=== PATIENT | male | born 1960 | race Caucasian/White ===

== ENCOUNTER 2019-10-21 10:56 | Observation (INO) | payer OTHER ==
[~2019-10-21] VITALS: Ht 180.3 cm; Wt 85.0 kg
--- NOTE | 2019-10-21 11:11 | ED Chest Pain ---
General Chief Complaint: Chest Pain Stated Complaint: CHEST PAIN Source: patient Exam Limitations: no limitations History of Present Illness Date Seen by Provider: Oct 21, 2019 Time Seen by Provider: 11:09 Initial Comments to ER by private vehicle with reports of chest tightness intermittently for 3 weeks. Seems to be brought about by activity. It does go away if he stops the activity. No shortness of breath or diaphoresis or nausea. No personal or family history of heart disease. States that he is prediabetic with his last hemoglobin A1c of about 6. He does smoke just under a pack of cigarettes per day. He called his urologist Dr. Sadler today who referred him to ER for further evaluation. 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 States that walking around carrying a tray does seem to worsen his pain. his only medication is Cialis, most recent dose was on of this past week. Timing/Duration: 1-2 days (heart but) Severity/Quality: moderate Radiation: no radiation Activities at Onset: none Prior CP/Workup: no prior chest pain, no prior cardiac workup Modifying Factors: improves with rest ASA po ORE MINER: No NTG SL ORE MINER: No Allergies and Home Medications Allergies Coded Allergies: simvastatin (Verified Allergy, Unknown, 10/21/19) Patient Home Medication List Home Medication List Reviewed: Yes Review of Systems Review of Systems Constitutional: see HPI EENTM: No Symptoms Reported Respiratory: No Symptoms Reported Cardiovascular: See HPI, Chest Pain; Denies Irregular Heart Rate, Denies Palpitations, Denies Syncope Gastrointestinal: See HPI; Denies Abdominal Pain, Denies Nausea Genitourinary: No Symptoms Reported Musculoskeletal: no symptoms reported Skin: no symptoms reported Psychiatric/Neurological: No Symptoms Reported Endocrine: No Symptoms Reported Hematologic/Lymphatic: No Symptoms Reported Past Ycewwen-Pzxgkm-Zumxyr Hx Patient Social History Recent Foreign Travel: No Contact w/Someone Who Travel: No Physical Exam Vital Signs Vital Signs - First Documented 10/21/19 10:59 Pulse 62 Resp 18 B/P (MAP) 152/104 (120) Pulse Ox 98 O2 Delivery Room Air Capillary Refill : Height, Weight, BMI Height: '" Weight: lbs. oz. kg; BMI Method: General Appearance: No Apparent Distress, WD/WN HEENT: PERRL/EOMI, TMs Normal Neck: Full Range of Motion, Normal Inspection Respiratory: Lungs Clear, Normal Breath Sounds, No Accessory Muscle Use, No Respiratory Distress Cardiovascular: Regular Rate, Rhythm, Normal Peripheral Pulses Gastrointestinal: Non Tender, Soft Neurologic/Psychiatric: Alert, Oriented x3 Skin: Normal Color, Warm/Dry Other comments 1111-he currently rates his pain at 1 out of 10. Progress/Results/Core Measures Results/Orders Lab Results Laboratory Tests Test 10/21/19 11:02 Range/Units White Blood Count 7.8 4.3-11.0 10^3/uL Red Blood Count 5.03 4.35-5.85 10^6/uL Hemoglobin 14.7 13.3-17.7 G/DL Hematocrit 44 40-54 % Mean Corpuscular Volume 88 80-99 FL Mean Corpuscular Hemoglobin 29 25-34 PG Mean Corpuscular Hemoglobin Concent 33 32-36 G/DL Red Cell Distribution Width 12.9 10.0-14.5 % Platelet Count 159 130-400 10^3/uL Mean Platelet Volume 11.4 H 7.4-10.4 FL Neutrophils (%) (Auto) 55 42-75 % Lymphocytes (%) (Auto) 35 12-44 % Monocytes (%) (Auto) 8 0-12 % Eosinophils (%) (Auto) 3 0-10 % Basophils (%) (Auto) 0 0-10 % Neutrophils # (Auto) 4.3 1.8-7.8 X 10^3 Lymphocytes # (Auto) 2.7 1.0-4.0 X 10^3 Monocytes # (Auto) 0.6 0.0-1.0 X 10^3 Eosinophils # (Auto) 0.2 0.0-0.3 10^3/uL Basophils # (Auto) 0.0 0.0-0.1 10^3/uL Prothrombin Time 12.1 L 12.2-14.7 SEC INR Comment 0.9 0.8-1.4 Activated Partial Thromboplast Time 24 24-35 SEC Sodium Level 140 135-145 MMOL/L Potassium Level 4.5 3.6-5.0 MMOL/L Chloride Level 111 H 98-107 MMOL/L Carbon Dioxide Level 20 L 21-32 MMOL/L Anion Gap 9 5-14 MMOL/L Blood Urea Nitrogen 16 7-18 MG/DL Creatinine 0.93 0.60-1.30 MG/DL Estimat Glomerular Filtration Rate > 60 BUN/Creatinine Ratio 17 Glucose Level 103 70-105 MG/DL Calcium Level 9.0 8.5-10.1 MG/DL Corrected Calcium 8.8 8.5-10.1 MG/DL Magnesium Level 2.1 1.6-2.4 MG/DL Total Bilirubin 0.3 0.1-1.0 MG/DL Aspartate Amino Transf (AST/SGOT) 19 5-34 U/L Alanine Aminotransferase (ALT/SGPT) 15 0-55 U/L Alkaline Phosphatase 53 40-136 U/L Myoglobin 36.3 10.0-92.0 NG/ML Troponin I < 0.028 <0.028 NG/ML B-Type Natriuretic Peptide 45.8 <100.0 PG/ML Total Protein 6.9 6.4-8.2 GM/DL Albumin 4.2 3.2-4.5 GM/DL My Orders Orders - WILLARD SANTOS HANDLE SEWER Cbc With Automated Diff (10/21/19 11:08) Magnesium (10/21/19 11:08) Chest 1 View, Ap/Pa Only (10/21/19 11:08) Ekg Tracing (10/21/19 11:08) Comprehensive Metabolic Panel (10/21/19 11:08) Myoglobin Serum (10/21/19 11:08) Protime With Inr (10/21/19 11:08) Partial Thromboplastin Time (10/21/19 11:08) O2 (10/21/19 11:08) Monitor-Rhythm Ecg Trace Only (10/21/19 11:08) Lipid Panel (10/22/19 06:00) Ed Iv/Invasive Line Start (10/21/19 11:08) BNP (10/21/19 11:08) Troponin I (10/21/19 11:08) Nitroglycerin 0.4 Mg Btl 25's (Nitrostat (10/21/19 11:15) Aspirin Chewable Tablet (Baby Aspirin Ch (10/21/19 11:15) Medications Given in ED Current Medications Medications Dose Ordered Sig/Trisha Route Start Time Stop Time Status Last Admin Dose Admin Aspirin 324 mg ONCE ONCE PO 10/21/19 11:15 10/21/19 11:16 DC 10/21/19 11:23 324 MG Nitroglycerin 0.4 mg UD PRN SL 10/21/19 11:15 10/21/19 11:26 0.4 MG Vital Signs/I&O 10/21/19 10:59 Pulse 62 Resp 18 B/P (MAP) 152/104 (120) Pulse Ox 98 O2 Delivery Room Air Departure Communication (Admissions) Time/Spoke to Admitting Phy: 12:[address] Dr. Eduardo who agrees to admit, I spoke with Dr. Woodard who agrees to consult. Like aspirin and beta ana. Impression Primary Impression: Chest pain Qualified Codes: R07.9 - Chest pain, unspecified Disposition: ADMITTED INPATIENT Condition: Stable Admissions Decision to Admit Reason: Admit from ER (General) Decision to Admit/Date: Oct 21, 2019 Time/Decision to Admit Time: 11:46 WILLARD SANTOS APRN Oct 21, 2019 11:11
[2019-10-21] MEDS ORDERED: ASPIRIN 81 MG CHEW (CHILDREN'S ASA) PO ONE (11:15)
[2019-10-21] MEDS ORDERED: NITROGLYCERIN 0.4 MG SL TABS BTL 25'S SL PRN (11:15)
[2019-10-21 11:16] LABS: BASOPHILS % (AUTO) 0 % (0-10); EOSINOPHILS # (AUTO) 0.2 10^3/uL (0.0-0.3); EOSINOPHILS % (AUTO) 3 % (0-10); HEMATOCRIT 44 % (40-54); HEMOGLOBIN 14.7 G/DL (13.3-17.7); LYMPHOCYTES # (AUTO) 2.7 X 10^3 (1.0-4.0); LYMPHOCYTES % (AUTO) 35 % (12-44); MEAN CORPUSCULAR HEMOGLOBIN 29 PG (25-34); MEAN CORPUSCULAR HGB CONC 33 G/DL (32-36); MEAN CORPUSCULAR VOLUME 88 FL (80-99); MEAN PLATELET VOLUME 11.4 FL (7.4-10.4); MONOCYTES # (AUTO) 0.6 X 10^3 (0.0-1.0); MONOCYTES % (AUTO) 8 % (0-12); NEUTROPHILS # (AUTO) 4.3 X 10^3 (1.8-7.8); NEUTROPHILS % (AUTO) 55 % (42-75); PLATELET COUNT 159 10^3/uL (130-400); RED CELL DISTRIBUTION WIDTH 12.9 % (10.0-14.5); WHITE BLOOD COUNT 7.8 10^3/uL (4.3-11.0)
--- NOTE | 2019-10-21 11:23 | Diagnostic Imaging Report ---
INDICATION: Chest pain Frontal chest obtained at 11:14 a.m. Heart and mediastinal silhouette are normal in appearance. The lungs are clear. There is no pneumothorax or pleural fluid. IMPRESSION: Negative chest. Dictated by: Dictated on workstation # [id number]
[2019-10-21 11:28] LABS: INR 0.9 (0.8-1.4); PROTHROMBIN TIME PATIENT 12.1 SEC (12.2-14.7)
[2019-10-21 11:40] LABS: ALANINE AMINOTRANSFERASE 15 U/L (0-55); ALBUMIN 4.2 GM/DL (3.2-4.5); ALKALINE PHOSPHATASE 53 U/L (40-136); BILIRUBIN,TOTAL 0.3 MG/DL (0.1-1.0); BUN/CREATININE RATIO 17; CARBON DIOXIDE 20 MMOL/L (21-32); CHLORIDE 111 MMOL/L (98-107); CREATININE SERUM 0.93 MG/DL (0.60-1.30); GFR ESTIMATED > 60; GLUCOSE 103 MG/DL (70-105); MAGNESIUM 2.1 MG/DL (1.6-2.4); POTASSIUM 4.5 MMOL/L (3.6-5.0); SODIUM 140 MMOL/L (135-145); TOTAL PROTEIN 6.9 GM/DL (6.4-8.2)
--- NOTE | 2019-10-21 11:42 | NUR ---
PAIN STILL 1/10 REPORTS NITRO DID NOT HELP.
--- NOTE | 2019-10-21 11:45 | NUR ---
PATIENT STATES HE WILL UPDATE HIS .
--- NOTE | 2019-10-21 12:30 | NUR ---
PATIENT WILL CALL AND INFORM HER OF DISCHARGE INSTRUCTIOS.
[2019-10-21 13:07] VITALS: BP 128/81
[2019-10-21 13:08] VITALS: BP 128/81
--- NOTE | 2019-10-21 13:12 | NUR ---
BETTIE MIMS admitted to room 423-1, with an admitting diagnosis of angina, on 10/21/19 from ED via W/C, accompanied by .BETTIE MIMS introduced to surroundings, call light, bed controls, phone, TV, temperature control, lights, meal times, smoking policy, visitor policy, side rail policy, bathrooms and showers. Patient Rights given to patient in the handbook. BETTIE MIMS verbalizes understanding that [facility] is not responsible for the loss or damage to any personal effects or valuables that are kept in the patients posession during their hospitalization. The following Patient Care Plans were discussed with the PATIENT: Discharge Planning, CHEST PAIN AND KNOWLEDGE. BETTIE MIMS verbalizes understanding of Interdisciplinary Patient Education. Patient and/or family were informed about the Rapid Response Team and its purpose.
[2019-10-21] MEDS ORDERED: CATHETER FLUSH 10 ML SYR IV PRN (13:15)
--- NOTE | 2019-10-21 13:36 | Consultation-Cardiology ---
HPI-Cardiology Cardiology Consultation: Date of Consultation 10/21/19 Time Seen by a Provider: 13:00 Date of Admission 10-21-2019 Attending Physician Monique John MD Admitting Physician Consulting Physician Jose Woodard MD HPI: Chief Complaint: Chest pain Mr. Zamudio is a 59 year old male who works out at the [employer] in the [facility]. He has been admitted from the ED to 423. He reports for the last 3-4 weeks he has been having chest pressure which radiates across his chest. Discomfort comes on with exertion and relieves with rest. He reports some and weakness with the discomfort. With rest the discomfort will improve after a few minutes. He denies any palpitations, diaphoresis, syncope or near syncope. No LE swelling. No c/o n/v/d. No c/o fever or chills. He reports occ GERD. He states last evening he woke up during the night with acid reflux. He does not report any LE swelling. Review of Systems-Cardiology Review of Systems Constitutional: No chills, No fever, No malaise Eyes: No vision change Ears/Nose/Throat: No epistaxis, No recent hearing loss Respiratory: As described under HPI Cardiovascular: As described under HPI Gastrointestinal: No constipation, No diarrhea, No nausea, No vomiting Genitourinary: No dysuria, No hematuria Musculoskeletal: back pain Skin: No rash on exposed areas, No ulcerations on exposed areas Psychiatric/Neurological: No anxiety, No depression, No seizure, No focal weakness, No syncope Hematologic: No bleeding abnormalities BAX-Gbnxun-Pcgwkw Hx Patient Social History Alcohol Use: Regular Use Recreational Drug Use: No Smoking Status: Current Everyday Smoker Recent Foreign Travel: No Recent Infectious Disease Expo: No Past Medical History PMH As described under Assessment. Family Medical History Family Medical History: He reports his father had a CVA. He reports a son who had a brain tumor. Allergies and Home Medications Allergies Coded Allergies: simvastatin (Verified Allergy, Unknown, 10/21/19) Home Medications Aspirin 81 Mg Tab.chew, 81 MG PO DAILY Prescribed by: JOSE WOODARD on 10/22/19 1215 Pravastatin Sodium 20 Mg Tablet, 20 MG PO HS Prescribed by: JOSE WOODARD on 10/22/19 1216 Tadalafil 5 Mg Tablet, 5 MG PO DAILY, (Reported) Physical Exam-Cardiology Physical Exam Vital Signs/I&O 10/22/19 10/22/19 10/22/19 10/22/19 04:55 07:21 08:00 09:00 Temp 36.7 36.0 Pulse 47 42 45 Resp 16 18 B/P (MAP) 113/75 (88) 111/69 (83) Pulse Ox 95 98 O2 Delivery Room Air Room Air Room Air 10/22/19 10/22/19 10/22/19 10/22/19 11:15 11:30 11:45 12:00 Temp 36.0 Pulse 48 48 47 42 Resp 18 16 18 18 B/P (MAP) 114/68 (83) 108/65 (79) 104/70 (81) 109/68 (82) Pulse Ox 96 93 94 95 O2 Delivery Room Air Room Air Room Air Room Air 10/22/19 12:15 Pulse 48 Resp 18 B/P (MAP) 118/74 (89) Pulse Ox 94 O2 Delivery Room Air 10/22/19 00:00 Intake Total 900 ml Balance 900 ml Capillary Refill : Less Than 3 Seconds Constitutional: AAO x 3, well-nourished HEENT: PERRL, hearing is well preserved Neck: No carotid bruit; carotid pulses are 2 + bilaterally Respiratory: No accessory muscle use, No respiratory distress; chest expansion is symmetric, chest is bilaterally symmetric, lungs clear to auscultation Cardiovascular: regular rate-rhythm; No JVD; S1 and S2 Gastrointestinal: No tender; soft, round, audible bowel sounds Extremities: no lower extremity edema bilateral Neurologic/Psychiatric: grossly intact (moves all extremities) Skin: No rash on exposed areas, No ulcerations on exposed areas Data Review Labs Laboratory Tests 10/21/19 17:50: Troponin I < 0.028 10/21/19 18:05: 10/22/19 00:17: Troponin I < 0.028, White Blood Count 6.4, Red Blood Count 4.54, Hemoglobin 13.4, Hematocrit 40, Mean Corpuscular Volume 88, Mean Corpuscular Hemoglobin 30, Mean Corpuscular Hemoglobin Concent 34, Red Cell Distribution Width 13.0, Platelet Count 149, Mean Platelet Volume 11.0H, Neutrophils (%) (Auto) 47, Lymphocytes (%) (Auto) 43, Monocytes (%) (Auto) 7, Eosinophils (%) (Auto) 3, Basophils (%) (Auto) 0, Neutrophils # (Auto) 3.0, Lymphocytes # (Auto) 2.7, Monocytes # (Auto) 0.4, Eosinophils # (Auto) 0.2, Basophils # (Auto) 0.0, Prothrombin Time 13.0, INR Comment 0.9, Activated Partial Thromboplast Time 25, Sodium Level 140, Potassium Level 3.8, Chloride Level 109H, Carbon Dioxide Level 21, Anion Gap 10, Blood Urea Nitrogen 16, Creatinine 0.93, Estimat Glomerular Filtration Rate > 60, BUN/Creatinine Ratio 17, Glucose Level 136H, Calcium Level 8.6, Corrected Calcium 8.9, Total Bilirubin 0.3, Aspartate Amino Transf (AST/SGOT) 11, Alanine Aminotransferase (ALT/SGPT) 12, Alkaline Phosphatase 45, Total Protein 5.8L, Albumin 3.6, Triglycerides Level 138, Cholesterol Level 149, LDL Cholesterol Direct 100, VLDL Cholesterol 28, HDL Cholesterol 44 Microbiology 10/21/19 MRSA Screen - Final, Complete MRSA not isolated Radiology NAME: BETTIE ZAMUDIO [facility] REC#: [id number] PT STATUS: REG ER : 1960 PHYSICIAN: WILLARD SANTOS PRINCIPAL SYSTEMS ARCHITECT ADMIT DATE: 10/21/19/ER Draft Date of Exam:10/21/19 CHEST 1 VIEW, AP/PA ONLY INDICATION: Chest pain Frontal chest obtained at 11:14 a.m. Heart and mediastinal silhouette are normal in appearance. The lungs are clear. There is no pneumothorax or pleural fluid. IMPRESSION: Negative chest. Dictated on workstation # [id number] Dict: 10/21/19 1122 Trans: 10/21/19 1123 CVB [id number] Interpreted by: MARLIN THURMAN MD Electronically signed by: ECG Impression ECG Initial ECG Rhythm: Normal Sinus A/P-Cardiology Assessment/Admission Diagnosis Chest pain indicative of angina HTN HLD Tobaccoism (1/2 PPD for approx 40 yrs) Chronic back pain with h/s DDD GERD ED Discussion and Recomendations Chest pain with features consistent with angina - advise cardiac cath We have discussed the procedure, risks, benefits and potential complications of cardiac cath with possible ad hoc coronary intervention. He provides informed consent. We will proceed tomorrow or sooner if indicated. Continue ASA and BB Lipid panel in the morning Echocardiogram to eval structure Further recs will be based on his hospital course We would like to thank medical services for this consult Clinical Quality Measures AMI/AHF: ASA po Prior to arrival: MARY JANE Frank Oct 21, 2019 13:36
[2019-10-21] MEDS ORDERED: TADA5TAB13 PO (13:54)
--- NOTE | 2019-10-21 13:55 | NUR ---
SPOKE WITH PT ( I CALLED HIS ROOM PHONE) AND WENT THRU THE EXT MED HISTORY TO COMPLETE THE MED REC PT SAYS HE TAKES CIALIS 5MG DAILY BUT THE LAST DOSE HE HAD WAS ON 10-17-2019 OTC MEDS: NONE
--- NOTE | 2019-10-21 14:42 | History & Physical-Hospitalist ---
History of Present Illness HPI/Chief Complaint Pt is a 59yoCM with no significiant PMH who presented to the ER due to chest pain. He states that it's only there with exertion but is very intense. He has noticed it with yardwork and while at work and carrying trays. It resolved with rest. He denies any diaphoresis, nausea, or radiation of pain. he describes it as a heaviness. He has noticed some mild shortness of breath with it. He has already seen Dr Woodard and plan is to do a cath in the morning. First troponin was negative. He was admitted for observation. Source: patient Date Seen 10/21/19 Time Seen by a Provider: 14:42 Attending Physician Renny John MD PCP Referring Physician Date of Admission Oct 21, 2019 at 12:13 Home Medications & Allergies Home Medications Reviewed patient Home Medication Reconciliation performed by pharmacy medication reconciliations plant technician and/or nursing. Patients Allergies have been reviewed. Allergies Allergies Coded Allergies simvastatin (Verified Allergy, Unknown, 10/21/19) Past Lexboae-Nnysmx-Pfriiq Hx Past Med/Social Hx: Reviewed Nursing Past Med/Soc Hx Patient Social History Marrital Status: Alcohol Use: Regular Use Alcohol Beverage of Choice: Beer Recreational Drug Use: No Smoking Status: Current Everyday Smoker Recent Foreign Travel: No Contact w/other who traveled: No Recent Infectious Disease Expo: No Family History Reviewed Nursing Family Hx Alcoholism 19 FATHER Arthritis 19 MOTHER Review of Systems Constitutional: No chills, No diaphoresis, No fever EENTM: no symptoms reported Respiratory: see HPI; No cough; dyspnea on exertion, short of breath Cardiovascular: see HPI, chest pain; No edema, No Hx of Intervention, No palpitations, No syncope Gastrointestinal: No abdominal pain, No constipation, No diarrhea, No nausea, No vomiting Genitourinary: no symptoms reported Musculoskeletal: no symptoms reported Skin: no symptoms reported Psychiatric/Neurological: No Symptoms Reported Physical Exam Physical Exam Vital Signs Vital Signs - First Documented 10/21/19 10/21/19 10:59 13:07 Temp 36.2 Pulse 62 Resp 18 B/P (MAP) 152/104 (120) Pulse Ox 98 O2 Delivery Room Air Capillary Refill : Less Than 3 Seconds Height, Weight, BMI Height: '" Weight: lbs. oz. kg; 26.14 BMI Method: General Appearance: No Apparent Distress, WD/WN HEENT: PERRL/EOMI, Moist Mucous Membranes; No Scleral Icterus (L), No Scleral Icterus (R) Neck: Normal Inspection, Supple Respiratory: Lungs Clear, No Accessory Muscle Use, No Respiratory Distress Cardiovascular: Regular Rate, Rhythm, No JVD, No Murmur Gastrointestinal: Normal Bowel Sounds, Non Tender, Soft Extremity: Non Tender, No Calf Tenderness, No Pedal Edema Neurologic/Psychiatric: Alert, Oriented x3, Normal Mood/Affect Skin: Normal Color, Warm/Dry Results Results/Procedures Labs Laboratory Tests 10/21/19 11:02 Patient resulted labs reviewed. Imaging: Reviewed Imaging Report Imaging [facility] [place], [place] NAME: BETTIE MIMS [facility] REC#: [id number] PT STATUS: REG ER : 1960 PHYSICIAN: WILLARD SANTOS APRN ADMIT DATE: 10/21/19/ER Draft Date of Exam:10/21/19 CHEST 1 VIEW, AP/PA ONLY INDICATION: Chest pain Frontal chest obtained at 11:14 a.m. Heart and mediastinal silhouette are normal in appearance. The lungs are clear. There is no pneumothorax or pleural fluid. IMPRESSION: Negative chest. Dictated on workstation # [id number] Dict: 10/21/19 1122 Trans: 10/21/19 1123 [facility] [id number] Interpreted by: MARLIN THURMAN MD Electronically signed by: Assessment/Plan Admission Diagnosis Stable angina Admission Status: Observation Assessment and Plan Stable angina Cardiology consulted, appreciate recs troponin negative Telemetry Plan for cath in the AM ASA given DVt ppx: Lovenox Clinical Quality Measures AMI/AHF: ASA po Prior to arrival: No DVT/VTE Risk/Contraindication: Risk Factor Score Per Nursin RFS Level Per Nursing on Admit: 2=Moderate RENNY JOHN MD Oct 21, 2019 14:42
[2019-10-21] MEDS: CATHETER FLUSH 10 ML SYR IV SCH ×2 (15:15→20:15)
[2019-10-21 15:30] VITALS: BP 120/78
--- NOTE | 2019-10-21 16:07 | Consultation-Cardiology ---
HPI-Cardiology Cardiology Consultation: Date of Consultation 10/21/19 Time Seen by a Provider: 13:30 Date of Admission Attending Physician Monique John MD Admitting Physician Consulting Physician RENETTA ROSAS MD, MA, FACP, FACC, FSCAI, CCDS HPI: Chief Complaint: CC: Chest pain HPI Mr. 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 He has been admitted from the ED to 423. He reports for the last 3-4 weeks he has been having chest pressure which radiates across his chest. Discomfort comes on with exertion and relieves with rest. He reports some and weakness with the discomfort. With rest the discomfort will improve after a few minutes. He denies any palpitations, diaphoresis, syncope or near syncope. No LE swelling. No c/o n/v/d. No c/o fever or chills. He reports occ GERD. He states last evening he woke up during the night with acid reflux. He does not report any LE swelling. Review of Systems-Cardiology Review of Systems Constitutional: No chills, No fever, No malaise Eyes: No vision change Ears/Nose/Throat: No epistaxis, No recent hearing loss Respiratory: As described under HPI Cardiovascular: As described under HPI Gastrointestinal: No constipation, No diarrhea, No nausea, No vomiting Genitourinary: No dysuria, No hematuria Musculoskeletal: back pain Skin: No rash on exposed areas, No ulcerations on exposed areas Psychiatric/Neurological: No anxiety, No depression, No seizure, No focal weakness, No syncope Hematologic: No bleeding abnormalities TZI-Ysfmal-Zxneyu Hx Patient Social History Marrital Status: Alcohol Use: Regular Use Recreational Drug Use: No Smoking Status: Current Everyday Smoker Recent Foreign Travel: No Recent Infectious Disease Expo: No Past Medical History PMH As described under Assessment. Family Medical History Family Medical History: He reports his father had a CVA. He reports a son who had a brain tumor. Family History: Alcoholism 19 FATHER Arthritis 19 MOTHER Allergies and Home Medications Allergies Coded Allergies: simvastatin (Verified Allergy, Unknown, 10/21/19) Home Medications Tadalafil 5 Mg Tablet, 5 MG PO DAILY, (Reported) Patient Home Medication List Home Medication List Reviewed: Yes Physical Exam-Cardiology Physical Exam Vital Signs/I&O 8/10/21/19 10/21/19 10/21/19 10:59 12:58 13:07 13:08 Temp 36.2 36.2 Pulse 62 55 51 51 Resp 18 18 18 18 B/P (MAP) 152/104 (120) 124/87 128/81 (97) 128/81 Pulse Ox 98 96 97 97 O2 Delivery Room Air Room Air Room Air 10/21/19 13:34 Pulse 48 Capillary Refill : Less Than 3 Seconds Constitutional: AAO x 3, well-nourished HEENT: PERRL, hearing is well preserved Neck: carotid pulses are 2 + bilaterally Respiratory: chest expansion is symmetric, chest is bilaterally symmetric, lungs clear to auscultation Cardiovascular: regular rate-rhythm, S1 and S2 Gastrointestinal: soft, round, audible bowel sounds Extremities: no lower extremity edema bilateral Neurologic/Psychiatric: grossly intact Skin: No rash on exposed areas, No ulcerations on exposed areas Data Review Labs Laboratory Tests 10/21/19 11:02: White Blood Count 7.8, Red Blood Count 5.03, Hemoglobin 14.7, Hematocrit 44, Mean Corpuscular Volume 88, Mean Corpuscular Hemoglobin 29, Mean Corpuscular Hemoglobin Concent 33, Red Cell Distribution Width 12.9, Platelet Count 159, Mean Platelet Volume 11.4H, Neutrophils (%) (Auto) 55, Lymphocytes (%) (Auto) 35, Monocytes (%) (Auto) 8, Eosinophils (%) (Auto) 3, Basophils (%) (Auto) 0, Neutrophils # (Auto) 4.3, Lymphocytes # (Auto) 2.7, Monocytes # (Auto) 0.6, Eosinophils # (Auto) 0.2, Basophils # (Auto) 0.0, Prothrombin Time 12.1L, INR Comment 0.9, Activated Partial Thromboplast Time 24, Sodium Level 140, Potassium Level 4.5, Chloride Level 111H, Carbon Dioxide Level 20L, Anion Gap 9, Blood Urea Nitrogen 16, Creatinine 0.93, Estimat Glomerular Filtration Rate > 60, BUN/Creatinine Ratio 17, Glucose Level 103, Calcium Level 9.0, Corrected Calcium 8.8, Magnesium Level 2.1, Total Bilirubin 0.3, Aspartate Amino Transf (AST/SGOT) 19, Alanine Aminotransferase (ALT/SGPT) 15, Alkaline Phosphatase 53, Myoglobin 36.3, Troponin I < 0.028, B-Type Natriuretic Peptide 45.8, Total Protein 6.9, Albumin 4.2 Laboratory Tests 10/21/19 11:02 A/P-Cardiology Assessment/Admission Diagnosis Chest pain indicative of new onset of angina HTN HLD Tobaccoism (1/2 PPD for approx 40 yrs) Chronic back pain with h/s DDD GERD ED Discussion and Recomendations Given chest pain with features consistent with angina, we advise cardiac cath We have discussed the procedure, risks, benefits and potential complications of cardiac cath with possible ad hoc coronary intervention. He provides informed consent. We will proceed tomorrow or sooner if indicated. Continue ASA and BB Lipid panel in the morning Echocardiogram to eval structure Further recs will be based on his hospital course We would like to thank Medical services for this consult Clinical Quality Measures AMI/AHF: ASA po Prior to arrival: No DVT/VTE Risk/Contraindication: Risk Factor Score Per Nursin RFS Level Per Nursing on Admit: 2=Moderate RENETTA ROSAS MD FACP FAC CCDS Oct 21, 2019 16:07
--- NOTE | 2019-10-21 16:39 | NUR ---
NOTIFIED DR PETERSEN HEART RATE IS 43 (METOPROLOL GIVEN ORDERED). DVT SCOR IS 2 SCD'S ONLY. WATCH HEART RATE AND NOTIFIY DR ROSAS OR MARY JANE. DR ROSAS PAGED
--- NOTE | 2019-10-21 17:52 | NUR ---
PAGED DR ROSAS AGAIN. HEART RATE RUNNING AROUND 45. DC THE METOPROLOL
[2019-10-21 20:13] VITALS: BP 113/73
[2019-10-22] VITALS (14 sets, daily range): BP systolic 104–119; BP diastolic 65–78
[2019-10-22 00:28] LABS: BASOPHILS % (AUTO) 0 % (0-10); EOSINOPHILS # (AUTO) 0.2 10^3/uL (0.0-0.3); EOSINOPHILS % (AUTO) 3 % (0-10); HEMATOCRIT 40 % (40-54); HEMOGLOBIN 13.4 G/DL (13.3-17.7); LYMPHOCYTES # (AUTO) 2.7 X 10^3 (1.0-4.0); LYMPHOCYTES % (AUTO) 43 % (12-44); MEAN CORPUSCULAR HEMOGLOBIN 30 PG (25-34); MEAN CORPUSCULAR HGB CONC 34 G/DL (32-36); MEAN CORPUSCULAR VOLUME 88 FL (80-99); MONOCYTES # (AUTO) 0.4 X 10^3 (0.0-1.0); MONOCYTES % (AUTO) 7 % (0-12); NEUTROPHILS % (AUTO) 47 % (42-75); PLATELET COUNT 149 10^3/uL (130-400); WHITE BLOOD COUNT 6.4 10^3/uL (4.3-11.0)
[2019-10-22 00:39] LABS: INR 0.9 (0.8-1.4)
[2019-10-22 00:52] LABS: ALANINE AMINOTRANSFERASE 12 U/L (0-55); ALBUMIN 3.6 GM/DL (3.2-4.5); ALKALINE PHOSPHATASE 45 U/L (40-136); BILIRUBIN,TOTAL 0.3 MG/DL (0.1-1.0); BUN/CREATININE RATIO 17; CALCIUM 8.6 MG/DL (8.5-10.1); CARBON DIOXIDE 21 MMOL/L (21-32); CHLORIDE 109 MMOL/L (98-107); CHOLESTEROL 149 MG/DL (< 200); CREATININE SERUM 0.93 MG/DL (0.60-1.30); GFR ESTIMATED > 60; GLUCOSE 136 MG/DL (70-105); HDL CHOLESTEROL 44 MG/DL (40-60); POTASSIUM 3.8 MMOL/L (3.6-5.0); SODIUM 140 MMOL/L (135-145); TOTAL PROTEIN 5.8 GM/DL (6.4-8.2); TRIGLYCERIDES 138 MG/DL (<150); VLDL CHOLESTEROL 28 MG/DL (5-40)
[2019-10-22] MEDS ORDERED: NS IV 1000 ML 1,000 ML IV SCH ×2 (05:00→10:48)
[2019-10-22] MEDS: CATHETER FLUSH 10 ML SYR IV SCH ×2 (05:44→14:26)
[2019-10-22] MEDS ORDERED: ASPIRIN 81 MG CHEW (CHILDREN'S ASA) PO SCH (09:00)
[2019-10-22] MEDS ORDERED: MIDAZOLAM 5 MG/5 ML (VERSED) VIAL ONE (09:31)
[2019-10-22] MEDS ORDERED: LIDOCAINE 1% INJ 20 ML 20 ML VIAL ONE (09:31)
[2019-10-22] MEDS ORDERED: fentaNYL INJECTION 100 MCG/2 ML AMP ONE (09:32)
[2019-10-22] MEDS ORDERED: HEParin (CATH LAB) 2,000 ML IV ONE (09:32)
[2019-10-22] MEDS ORDERED: NS IV 1000 ML 0 ML ONE (09:32)
--- NOTE | 2019-10-22 09:45 | NUR ---
PT HAD QUESTIONS REGARDING AN ECHO DURING ASSESSMENT THIS AM. NO ORDERS IN CHART FOR ECHO ORDERED. 0945- DR ROSAS NOTIFIED AND GAVE ORDERS FOR A 2DECHO TODAY. 0946- PT WAS TAKEN OFF FLOOR FOR HEART CATH AT THIS TIME. AT PT SIDE.
[2019-10-22] MEDS ORDERED: ASPIRIN 81 MG CHEW (CHILDREN'S ASA) PO ONE (11:00)
[2019-10-22] MEDS ORDERED: PATIENT MAY USE OWN MEDS, ALL PO SCH (11:00)
--- NOTE | 2019-10-22 11:15 | NUR ---
PT ARRIVED FROM BENEFITS ADMINISTRATOR TO ROOM 509. PT ASLEEP BUT EASILY AROUSALE AND IS A/OX4. HE DENIES COMPLAINTS OR NEEDS AT THIS TIME. RIGHT GROIN SOFT WITH NO COMPLICATIONS NOTED. DISTAL PULSES STRONG ON PALPATION. PT HR 40 WHEN ASLEEP, DOES RISE TO 48-50 WHEN AWAKE. BP STABLE AT THIS TIME. IS AT BEDSIDE.
--- NOTE | 2019-10-22 11:51 | Progress Note - Cardiology ---
Cardiology SOAP Progress Note Subjective: No recurrence of chest pain since admission No shortness of breath or palp or syncope No n/v/d No focal weakness Objective: I&O/Vital Signs 10/22/19 10/22/19 10/22/19 10/22/19 00:02 01:00 04:55 07:21 Temp 36.5 36.7 Pulse 54 46 47 42 Resp 16 16 B/P (MAP) 112/66 (81) 113/75 (88) Pulse Ox 94 95 O2 Delivery Room Air Room Air 10/22/19 08:00 Temp 36.0 Pulse 45 Resp 18 B/P (MAP) 111/69 (83) Pulse Ox 98 O2 Delivery Room Air 10/22/19 00:00 Intake Total 900 ml Balance 900 ml Constitutional: AAO x 3, well-nourished Respiratory: chest expansion is symmetric, chest is bilaterally symmetric, lungs clear to auscultation Cardiovascular: regular rate-rhythm, S1 and S2 Gastrointestional: soft, round, audible bowel sounds Extremities: no lower extremity edema bilateral Neurologic/Psychiatric: grossly intact Skin: No rash on exposed areas, No ulcerations on exposed areas Results/Procedures: Labs Laboratory Tests 10/21/19 17:50: Troponin I < 0.028 10/21/19 18:05: 10/22/19 00:17: Troponin I < 0.028, White Blood Count 6.4, Red Blood Count 4.54, Hemoglobin 13.4, Hematocrit 40, Mean Corpuscular Volume 88, Mean Corpuscular Hemoglobin 30, Mean Corpuscular Hemoglobin Concent 34, Red Cell Distribution Width 13.0, Platelet Count 149, Mean Platelet Volume 11.0H, Neutrophils (%) (Auto) 47, Lym phocytes (%) (Auto) 43, Monocytes (%) (Auto) 7, Eosinophils (%) (Auto) 3, Basophils (%) (Auto) 0, Neutrophils # (Auto) 3.0, Lymphocytes # (Auto) 2.7, Monocytes # (Auto) 0.4, Eosinophils # (Auto) 0.2, Basophils # (Auto) 0.0, Prothrombin Time 13.0, INR Comment 0.9, Activated Partial Thromboplast Time 25, Sodium Level 140, Potassium Level 3.8, Chloride Level 109H, Carbon Dioxide Level 21, Anion Gap 10, Blood Urea Nitrogen 16, Creatinine 0.93, Estimat Glomerular Filtration Rate > 60, BUN/Creatinine Ratio 17, Glucose Level 136H, Calcium Level 8.6, Corrected Calcium 8.9, Total Bilirubin 0.3, Aspartate Amino Transf (AST/SGOT) 11, Alanine Aminotransferase (ALT/SGPT) 12, Alkaline Phosphatase 45, Total Protein 5.8L, Albumin 3.6, Triglycerides Level 138, Cholesterol Level 149, LDL Cholesterol Direct 100, VLDL Cholesterol 28, HDL Cholesterol 44 Microbiology 10/21/19 MRSA Screen - Final, Complete MRSA not isolated Laboratory Tests 10/21/19 11:02 10/22/19 00:17 A/P: Assessment: Chest pain of undetermined etiology, no evidence of ACS Card cath on 10/22/19: mild to mod, diffuse CAD; LVEF 65%, LVEDP 23 mmHg HTN HLD Tobaccoism (1/2 PPD for approx 40 yrs) Chronic back pain GERD ED Plan: We had a long and detailed discussion with him and his regarding his cardiac w/u and his CV issues Advised to quit smoking immediately and completely Continue ASA He notes nonspecific intolerance to Zocor, but is willing to try a different statin. Will place on pravastatin Given elevated LVEDP on card cath, we advise sleep studies We advise a w/u for noncardiac chest pain with his pcp Outpt f/u advised Clinical Quality Measures AMI/AHF: ASA po Prior to arrival: RENETTA Garcia MD FACP FAC CCDS Oct 22, 2019 11:51
[2019-10-22] MEDS ORDERED: ASPI-999 PO (12:15)
[2019-10-22] MEDS ORDERED: PRAV20TA3 PO (12:16)
--- NOTE | 2019-10-22 13:02 | CARDIAC CATHETERIZATION ---
DATE OF SERVICE: 10/22/2019 CARDIAC CATHETERIZATION REPORT The patient is a 59-year-old gentleman, who has multiple coronary artery disease risk factors that include hypertension and chronic smoking of cigarettes. He has been experiencing exertional chest discomfort and shortness of breath suggestive of new onset angina. Cardiac catheterization was carried out today after having obtained an informed consent. DESCRIPTION OF PROCEDURE: He was brought to the cardiac catheterization laboratory in a fasting state. Right groin was prepared and draped in the usual sterile fashion. Lidocaine 1% was used for local anesthesia. Modified Seldinger technique was used to advance a 5-Emirati sheath in the right femoral artery. Angiography of the right femoral artery was carried out through the sheath. A 5-Emirati JL4 catheter for left coronary angiography, 5-Emirati JR4 catheter was used for right coronary angiography, 5-Emirati pigtail catheter was used for aortic root angiography. Aortic root angiography was performed to reevaluate right coronary artery that was exhibiting mild spasm at the tip of the diagnostic catheter with selective engagement. Aortic root angiography provided a view without selective engagement of the right coronary artery. We used a pigtail catheter to carry out left heart catheterization and left ventricular angiography. At the end of the procedure, following removal of the diagnostic catheters, Mynx was used to achieve hemostasis following sheath removal. HEMODYNAMICS: Left ventricular end-diastolic pressure following coronary angiography was 23 mmHg. There was no significant pressure gradient on pullback across the aortic valve. Ascending aortic pressure was 100/66 with a mean 80 mmHg. CORONARY ANGIOGRAPHY: There is diffuse coronary calcification, especially of the left anterior descending. The left main coronary artery does not exhibit significant obstructive disease. Left anterior descending artery has diffuse moderate disease. The left circumflex artery has mild plaques. Right coronary artery has mild diffuse disease. There was some spasm at the tip of the diagnostic catheter, but there did not appear to be significant obstructive disease. Right coronary artery is dominant. LEFT VENTRICULAR ANGIOGRAPHY: Left ventricular angiography was carried out in the right anterior oblique projection. Global left ventricular systolic function normal. No regional wall motion abnormalities were seen. Left ventricular ejection fraction is estimated to be 65%. AORTIC ROOT ANGIOGRAPHY: Aortic root angiography did not indicate any significant aortic root aneurysm or dissection. The aortic valve leaflets exhibit good leaflet excursion. There is no significant aortic regurgitation. Right coronary artery is identified and does not exhibit significant obstructive disease. CONCLUSIONS: 1. Mild to moderate coronary artery disease. 2. Normal global left ventricular systolic function with an ejection fraction of 65%. 3. Elevated left ventricular end-diastolic pressure. DISCUSSION AND RECOMMENDATIONS: Based on results of the study, it appears appropriate to continue a conservative approach. Risk factor modification has been advised. He has been advised to quit smoking. Hypertension is being treated. Close outpatient followup is advised. Job ID: [id number] DocumentID: [id number] Dictated Date: 10/22/2019 10:47:20 Coloring Room Worker Date: 10/22/2019 13:01:19 Dictated By: RENETTA ROSAS MD, MA, FACP, FACC,
--- NOTE | 2019-10-22 14:37 | Discharge Inst-Simple/Standard ---
Discharge Inst-Standard Discharge Medications New, Converted or Re-Newed RX: Transmitted to Pharmacy Patient Instructions/Follow Up Plan of Care/Instructions/FU: Please continue to take your medications as written. Please follow up with your primary care doctor in the next week to follow up this hospital stay. Activity as Tolerated: Yes Discharge Diet: Cardiac Diet Return to The Hospital For: Chest pain, shortness of breath, fever, if you feel you are getting worse. RENNY PETERSEN MD Oct 22, 2019 14:30
--- NOTE | 2019-10-22 14:43 | Discharge Summary ---
Diagnosis/Chief Complaint Date of Admission Oct 21, 2019 at 12:13 Date of Discharge Discharge Date: Oct 22, 2019 Admission Diagnosis Stable angina Primary Care Discharge Summary Procedures/Consulations Cardiology- Dr Woodard Discharge Physical Exam Allergies: Coded Allergies: simvastatin (Verified Allergy, Unknown, 10/21/19) Vitals & I&Os Vital Signs Date Time Temp Pulse Resp B/P (MAP) Pulse Ox O2 Delivery O2 Flow Rate FiO2 10/22/19 12:15 48 18 118/74 (89) 94 Room Air 10/22/19 11:15 36.0 General Appearance: No Apparent Distress, WD/WN Cardiovascular: Regular Rate, Rhythm, No Murmur Gastrointestinal: Normal Bowel Sounds, Soft Neurologic/Psychiatric: Alert, Oriented x3 Hospital Course Pt is a 59yoCM who was admitted due to chest pain. He has serially negative troponins but given symptoms was taken to prosthetics lab technician for evaluation. He was found to have nonobstructive disease and conservative management was recommended. He was discharged home in stable condition to follow up with cardiology and primary care. Labs (last 24 hrs) Laboratory Tests 10/21/19 17:50: Troponin I < 0.028 10/21/19 18:05: Coronavirus (COVID-19)(PCR) NOT DETECTED 10/22/19 00:17: Troponin I < 0.028, White Blood Count 6.4, Red Blood Count 4.54, Hemoglobin 13.4, Hematocrit 40, Mean Corpuscular Volume 88, Mean Corpuscular Hemoglobin 30, Mean Corpuscular Hemoglobin Concent 34, Red Cell Distribution Width 13.0, Platelet Count 149, Mean Platelet Volume 11.0H, Neutrophils (%) (Auto) 47, Lymphocytes (%) (Auto) 43, Monocytes (%) (Auto) 7, Eosinophils (%) (Auto) 3, Basophils (%) (Auto) 0, Neutrophils # (Auto) 3.0, Lymphocytes # (Auto) 2.7, M onocytes # (Auto) 0.4, Eosinophils # (Auto) 0.2, Basophils # (Auto) 0.0, Prothrombin Time 13.0, INR Comment 0.9, Activated Partial Thromboplast Time 25, Sodium Level 140, Potassium Level 3.8, Chloride Level 109H, Carbon Dioxide Level 21, Anion Gap 10, Blood Urea Nitrogen 16, Creatinine 0.93, Estimat Glomerular Filtration Rate > 60, BUN/Creatinine Ratio 17, Glucose Level 136H, Calcium Level 8.6, Corrected Calcium 8.9, Total Bilirubin 0.3, Aspartate Amino Transf (AST/ SGOT) 11, Alanine Aminotransferase (ALT/SGPT) 12, Alkaline Phosphatase 45, Total Protein 5.8L, Albumin 3.6, Triglycerides Level 138, Cholesterol Level 149, LDL Cholesterol Direct 100, VLDL Cholesterol 28, HDL Cholesterol 44 Microbiology 10/21/19 MRSA Screen - Final, Complete MRSA not isolated Patient resulted labs reviewed. Imaging: Reviewed Imaging Report Discussion & Recommendations Discharge Planning: >30 minutes discharge planning Discharge Home Medications: Active Scripts Active Pravastatin Sodium 20 Mg Tablet 20 Mg PO HS Aspirin 81 Mg Tab.chew 81 Mg PO DAILY Reported Tadalafil 5 Mg Tablet 5 Mg PO DAILY Instructions to patient/family Please see electronic discharge instructions given to patient. Clinical Quality Measures AMI/AHF: ASA po Prior to arrival: No DVT/VTE Risk/Contraindication: Risk Factor Score Per Nursin RFS Level Per Nursing on Admit: 2=Moderate RENNY PETERSEN MD Oct 22, 2019 14:43
--- NOTE | 2019-10-22 14:51 | NUR ---
PT BEDREST OVER, PT AMBULATED AROUND STEP DOWN UNIT X 1 WITHOUT COMPLICATION. GROIN SITE BENIGN WITH NO COMPLICATIONS NOTED. VITALS REMAIN STABLE. REPORT CALLED TO SAKSHI AVILEZ ON [address] AND PT WILL BE TRANSPORTED VIA W/C TO ROOM 423. ECHO HAS BEEN COMPLETED.
--- NOTE | 2019-10-22 15:11 | NUR ---
PT TRANSPORTED VIA W/C TO ROOM 423 POST CATH. RIGHT GROIN BENIGN WITH NO PATIENT COMPLAINTS.
--- NOTE | 2019-10-22 17:59 | NUR ---
THADDEUS HELD TODAY PER DR LISSETH DHILLON D/T PT HAVING NOSE BLEEDS. Addendum: 10/22/19 at 1801 by SAKSHI HODGES RN DISREGARD NOTE. WRONG PT.
--- NOTE | 2019-10-22 18:00 | NUR ---
PT STABLE AT TIME OF DISCHARGE. PT AMBULATED OFF FLOOR TO PRIVATE VEHICLE. AT SIDE. DISCHARGE HEART CATH INSTRUCTIONS GIVEN TO PT. PT VERBALIZED UNDERSTANDING.
[2019-10-23] MEDS ORDERED: ASPIRIN 81 MG CHEW (CHILDREN'S ASA) PO SCH (09:00)
== END 2019-10-22 18:00 | disposition home or self-care (01) ==
LOC: ER 10:59 → 4TH 12:13
PROVIDERS: ADMIT Family Medicine; ATTEND Family Medicine
DX: I25.118 Atherosclerotic heart disease of native coronary artery with other forms of angina pectoris (principal); I10 Essential (primary) hypertension; E78.5 Hyperlipidemia, unspecified; K21.9 Gastro-esophageal reflux disease without esophagitis; G89.29 Other chronic pain; M51.36 Other intervertebral disc degeneration, lumbar region; F17.210 Nicotine dependence, cigarettes, uncomplicated; Z20.828 Contact with and (suspected) exposure to other viral communicable diseases; Z79.82 Long term (current) use of aspirin; Z79.899 Other long term (current) drug therapy; Z88.8 Allergy status to other drugs, medicaments and biological substances
CPT/HCPCS: 71045; 80053 ×2; 80061; 83735; 83874; 83880; 84484 ×2; 85025 ×2; 85610 ×2; 85730 ×2; 87081; 93005; 93041; 93306; 93458; 93567; 99284; C1760; C1894; U0002; 36415; 87635

== ENCOUNTER 2020-09-15 05:34 | Outpatient (CLI) | payer OTHER ==
[~2020-09-15] VITALS: Ht 180.3 cm; Wt 94.2 kg
[~2020-09-15 05:34] MED LIST: ASPI-999 PO; PRAV20TA3 PO; TADA5TAB13 PO
== END 2020-09-15 14:14 | disposition home or self-care (01) ==
LOC: PREOP 05:34
PROVIDERS: ATTEND Surgery
DX: Z01.818 Encounter for other preprocedural examination (principal)

== ENCOUNTER 2020-09-22 08:28 | Day surgery (SDC) | payer OTHER ==
[~2020-09-22] VITALS: Ht 180.3 cm; Wt 94.2 kg
[2020-09-22] MEDS ORDERED: LACTATED RINGERS 1,000 ML IV STA (08:38)
[2020-09-22] MEDS ORDERED: LACTATED RINGERS 1,000 ML IV ONE (08:42)
[2020-09-22 08:55] VITALS: BP 127/87
[2020-09-22] MEDS ORDERED: MIDAZOLAM 2 MG/2 ML (VERSED) VIAL ONE (09:52)
[2020-09-22] MEDS ORDERED: PROPOFOL INJECTION 50 ML IV ONE (09:52)
[2020-09-22 10:35] VITALS: BP_SYST 118; BP_SYST 97; BP_SYST 99; BP_DIAS 61; BP_DIAS 70; BP_DIAS 87
--- NOTE | 2020-09-22 10:35 | Progress Note-Post Operative ---
Post-Operative Progess Note Surgeon (s)/Sound Ranging Crewmember (s) Surgeon JESSICA MONTANEZ DO Sound Ranging Crewmember: na Pre-Operative Diagnosis screening colonoscopy Post-Operative Diagnosis diverticulosis, sigmoid polyp Procedure & Operative Findings Date of Procedure 09/22/20 Procedure Performed/Findings colonoscopy c snare polypectomy Anesthesia Type per civil attorney Estimated Blood Loss Estimated blood loss (mL): none Specimens/Packing Specimens Removed sigmoid polyp JESSICA MONTANEZ DO Sep 22, 2020 10:35
--- NOTE | 2020-09-22 10:37 | Discharge Inst-Simple/Standard ---
Discharge Inst-Standard Patient Instructions/Follow Up Plan of Care/Instructions/FU: 2 weeks Daphne Activity as Tolerated: Yes Discharge Diet: Regular Diet JESSICA MONTANEZ DO Sep 22, 2020 10:37
[2020-09-22 11:00] VITALS: BP 119/84
--- NOTE | 2020-09-22 11:03 | Anesthesia-General Post-Op ---
MAC Patient Condition Mental Status/LOC: Same as Preop Cardiovascular: Satisfactory Nausea/Vomiting: Absent Respiratory: Satisfactory Pain: Controlled Complications: Absent Post Op Complications Complications None Follow Up Care/Instructions Patient Instructions None needed. Anesthesiology Discharge Order Discharge Order Patient is doing well, no complaints, stable vital signs, no apparent adverse anesthesia problems. No complications reported per nursing. ALON MYERS CRNA Sep 22, 2020 11:03
--- NOTE | 2020-09-22 14:56 | OPERATIVE REPORT ---
DATE OF SERVICE: 09/22/2020 PREOPERATIVE DIAGNOSIS: Screening colonoscopy. POSTOPERATIVE DIAGNOSES: Diverticulosis and sigmoid colon polyp. PROCEDURES PERFORMED: Colonoscopy with snare polypectomy. SURGEON: Jessica Serna DO. ANESTHESIA: Per MEDICAL PHYSICS TEACHER. ESTIMATED BLOOD LOSS: None. COMPLICATIONS: None. INDICATIONS: The patient is a 60-year-old male with need for screening colonoscopy. He understands the risks and benefits of the procedure and wished to proceed with the procedure. Consent was signed in the chart. DESCRIPTION OF PROCEDURE: The patient was taken to the endoscopy suite and placed in the left lateral recumbent position. Timeout was performed. Digital rectal exam was performed. No palpable polyps, masses or ulcerations. Scope was inserted in the rectum and advanced all the way to cecum with minimal difficulty. Prep was adequate with irrigation and suction. Scope was then slowly retracted back. There were no polyps, masses or ulcerations within the cecum, ascending, transverse and descending colon. In the sigmoid colon, there was diverticulosis present. Also, a polyp slightly larger in the sigmoid, which snare polypectomy was performed. This was obtained for specimen. Scope was then continuously retracted back. No other polyps, masses or ulcerations within the sigmoid. Once in the rectum, scope was retroflexed noting no other pathology. Scope was returned to its normal position, slowly withdrawn until completely removed. The patient tolerated the procedure well without any complications, taken to recovery room in stable condition. RECOMMENDATIONS: The patient will need a repeat colonoscopy in one year for reevaluation to make sure the polyps have been eradicated. We would also recommend high fiber diet due to diverticulosis. Any issues before that be seen at that time. Job ID: [id number] DocumentID: [id number] Dictated Date: 09/22/2020 10:34:48 Marshmallow Runner Date: 09/22/2020 14:56:29 Dictated By: JESSICA SERNA DO
== END 2020-09-22 11:03 | disposition home or self-care (01) ==
LOC: ENDO 08:28
PROVIDERS: ATTEND Surgery
DX: Z12.11 Encounter for screening for malignant neoplasm of colon (principal); D12.5 Benign neoplasm of sigmoid colon; K57.30 Diverticulosis of large intestine without perforation or abscess without bleeding; K21.9 Gastro-esophageal reflux disease without esophagitis; G62.9 Polyneuropathy, unspecified; F17.210 Nicotine dependence, cigarettes, uncomplicated; Z79.899 Other long term (current) drug therapy; Z98.52 Vasectomy status; Z82.49 Family history of ischemic heart disease and other diseases of the circulatory system
CPT/HCPCS: 88305

== ENCOUNTER 2021-05-20 05:37 | Outpatient (RCR) | payer OTHER ==
[~2021-05-20] VITALS: Ht 180.3 cm; Wt 94.9 kg
[2021-05-20] MEDS ORDERED: ROSU20TA32 PO (08:45)
== END 2021-05-20 08:49 | disposition home or self-care (01) ==
LOC: PREOP 05:37
PROVIDERS: ATTEND Surgery
DX: Z01.818 Encounter for other preprocedural examination (principal)